=== PATIENT | male | born 1970 | race African-American/Black ===

== ENCOUNTER 2025-06-24 22:50 | Emergency (ER) | payer OTHER ==
[~2025-06-24] VITALS: Ht 190.5 cm; Wt 141.0 kg
[2025-06-24 22:56] VITALS: O2SAT 99
[2025-06-25 01:25] VITALS: BP 147/86; PULSE 86; RESP 12; TEMP 36.9; O2SAT 98
== END 2025-06-25 01:40 | disposition home or self-care (01) ==
LOC: ER 22:50
DX: R09.89 Other specified symptoms and signs involving the circulatory and respiratory systems (principal); R05.9 Cough, unspecified; I10 Essential (primary) hypertension; E78.5 Hyperlipidemia, unspecified; E11.9 Type 2 diabetes mellitus without complications
CPT/HCPCS: 99283